=== PATIENT | male | born 1965 | race Caucasian/White ===

== ENCOUNTER 2018-10-08 09:13 | Day surgery (SDC) | payer MEDICAID ==
[~2018-10-08] VITALS: Ht 175.3 cm; Wt 81.6 kg
[~2018-10-08 09:13] MED LIST: LACTATED RINGERS 1,000 ML IV SCH; MICAR4 PO; PANT40TA4 PO; PROP40TA7 PO; [UNRECOGNIZED DRUG - OTHER] PO; [UNRECOGNIZED DRUG - OTHER] PO
[2018-10-08] MEDS ORDERED: SODIUM CHLORIDE 0.9% 1,000 ML IV SCH (10:15)
[2018-10-08] MEDS ORDERED: SIMETHICONE 40 MG/0.6 ML 30ML ONE (11:11)
[2018-10-08] MEDS ORDERED: MIDAZOLAM HCL 2 MG/2 ML VIAL ONE (11:27)
[2018-10-08] MEDS ORDERED: LIDOCAINE HCL 1% 20ML VIAL (Pyxis) INJ ONE (11:27)
[2018-10-08] MEDS ORDERED: FENTANYL CITRATE/PF 50MCG/ML 2ML VIAL ONE ×2 (11:27→11:55)
[2018-10-08] MEDS ORDERED: PROPOFOL 200MG/20ML VIAL IV ONE (11:27)
[2018-10-08] MEDS ORDERED: DIPHENHYDRAMINE 50MG/ML VIAL ONE (11:28)
[2018-10-08] MEDS ORDERED: [UNRECOGNIZED DRUG - CODE] PO (12:11)
[2018-10-08] MEDS ORDERED: PROP40TA7 PO (12:16)
== END 2018-10-08 13:55 | disposition home or self-care (01) ==
LOC: OR 09:13
PROVIDERS: ATTEND Internal Medicine Gastroenterology
DX: K29.50 Unspecified chronic gastritis without bleeding (principal); I85.10 Secondary esophageal varices without bleeding; K74.69 Other cirrhosis of liver; K76.6 Portal hypertension; K44.9 Diaphragmatic hernia without obstruction or gangrene; K31.9 Disease of stomach and duodenum, unspecified; K31.89 Other diseases of stomach and duodenum; K29.70 Gastritis, unspecified, without bleeding; K31.7 Polyp of stomach and duodenum; I10 Essential (primary) hypertension; F10.10 Alcohol abuse, uncomplicated; K21.9 Gastro-esophageal reflux disease without esophagitis; Z79.899 Other long term (current) drug therapy
CPT/HCPCS: 43244; 43251; 88305; 88312; 88313; 93005; J1200; J2250; J2704; J3010; J3490

== ENCOUNTER 2018-12-17 08:40 | Day surgery (SDC) | payer MEDICAID ==
[~2018-12-17] VITALS: Ht 175.3 cm; Wt 82.6 kg
[~2018-12-17 08:40] MED LIST changes: -LACTATED RINGERS 1,000 ML IV SCH; +[UNRECOGNIZED DRUG - CODE] PO; -[UNRECOGNIZED DRUG - OTHER] PO
[2018-12-17] MEDS ORDERED: LACTATED RINGERS 1,000 ML IV SCH (09:30)
[2018-12-17] MEDS ORDERED: LIDOCAINE HCL/PF 1% 10 MG/ML 5ML VIAL ONE (11:35)
[2018-12-17] MEDS ORDERED: PROPOFOL 200MG/20ML VIAL IV ONE (11:35)
[2018-12-17] MEDS ORDERED: RANI150T7 PO (12:17)
[2018-12-17] MEDS ORDERED: SUCR1TAB PO (12:17)
== END 2018-12-17 13:20 | disposition home or self-care (01) ==
LOC: OR 08:40
PROVIDERS: ATTEND Internal Medicine Gastroenterology
DX: K29.70 Gastritis, unspecified, without bleeding (principal); I85.00 Esophageal varices without bleeding; K74.60 Unspecified cirrhosis of liver; K44.9 Diaphragmatic hernia without obstruction or gangrene; K31.9 Disease of stomach and duodenum, unspecified; K21.9 Gastro-esophageal reflux disease without esophagitis; M19.90 Unspecified osteoarthritis, unspecified site; I10 Essential (primary) hypertension; Z96.642 Presence of left artificial hip joint; Z98.890 Other specified postprocedural states; Z79.899 Other long term (current) drug therapy; F10.10 Alcohol abuse, uncomplicated
CPT/HCPCS: 43235; J2704; J3490

== ENCOUNTER 2019-03-12 10:23 | Emergency (ER) | payer MEDICAID ==
[~2019-03-12] VITALS: Ht 175.3 cm; Wt 85.0 kg
[~2019-03-12 10:23] MED LIST changes: -MICAR4 PO; -PANT40TA4 PO; -PROP40TA7 PO; +RANI150T7 PO; -[UNRECOGNIZED DRUG - CODE] PO
[2019-03-12] MEDS ORDERED: SODIUM CHLORIDE 0.9% 1,000 ML IV ONE (11:21)
[2019-03-12 11:49] LABS: EOSINOPHILS % 2.4 % (0.0-5.0); HEMATOCRIT. 42.4 % (42.0-52.0); LYMPHOCYTES % 37.9 % (20.0-50.0); MEAN CORPUSCULAR HEMOGLOBIN 28.8 pg (28.0-32.0); MEAN CORPUSCULAR VOLUME 87.4 fL (80.0-94.0); MEAN PLATELET VOLUME 9.4 fl (7.4-10.4); MONOCYTES % 10.9 % (2.0-8.0); NEUTROPHILS % 47.8 % (40.0-76.0); PLATELET 204 x1000/uL (130-400); RED BLOOD CELL COUNT 4.85 mill/uL (4.7-6.1); RED CELL DISTRIBUTION WIDTH 13.7 % (11.6-14.6)
[2019-03-12 11:54] LABS: CHLORIDE 107 mEq/L (98-107)
[2019-03-12 14:08] LABS: CLARITY URINE CLEAR (CLEAR); COLOR URINE YELLOW (YELLOW); KETONES URINE NEGATIVE (NEGATIVE); LEUKOCYTE ESTERASE URINE NEGATIVE (NEGATIVE); NITRITE URINE NEGATIVE (NEGATIVE); OCCULT BLOOD URINE NEGATIVE (NEGATIVE); PH URINE 6.5 (4.5-8.0); PROTEIN URINE NEGATIVE (NEGATIVE); SPECIFIC GRAVITY URINE 1.009 (1.005-1.030); UROBILINOGEN URINE 0.2 E.U./dL (0.2-1.0)
[2019-03-12 17:00] VITALS: BP 125/79
== END 2019-03-12 17:06 | disposition home or self-care (01) ==
LOC: ER 10:23
DX: R42 Dizziness and giddiness (principal); K74.60 Unspecified cirrhosis of liver
CPT/HCPCS: 36415; 71045; 80053; 81003; 83690; 83735; 84484; 85025; 93005; 99284; J7030

== ENCOUNTER 2019-07-01 10:31 | Emergency (ER) | payer MEDICAID ==
[~2019-07-01] VITALS: Ht 175.3 cm; Wt 89.0 kg
[2019-07-01 11:50] LABS: CLARITY URINE CLEAR (CLEAR); COLOR URINE YELLOW (YELLOW); KETONES URINE NEGATIVE (NEGATIVE); LEUKOCYTE ESTERASE URINE NEGATIVE (NEGATIVE); NITRITE URINE NEGATIVE (NEGATIVE); OCCULT BLOOD URINE NEGATIVE (NEGATIVE); PH URINE 7.5 (4.5-8.0); PROTEIN URINE NEGATIVE (NEGATIVE); SPECIFIC GRAVITY URINE 1.004 (1.005-1.030); UROBILINOGEN URINE 0.2 E.U./dL (0.2-1.0)
[2019-07-01 12:24] LABS: *AMPHETAMINES SCREEN URINE NEGATIVE (NEGATIVE); *BARBITURATES SCREEN URINE NEGATIVE (NEGATIVE); CANNABINOID URINE SCREEN NEGATIVE (NEGATIVE); OPIATES URINE SCREEN NEGATIVE (NEGATIVE); PHENCYCLIDINE URINE SCREEN NEGATIVE (NEGATIVE)
[2019-07-01 12:26] LABS: *BENZODIAZEPINES SCREEN URINE NEGATIVE (NEGATIVE); *COCAINE SCREEN URINE NEGATIVE (NEGATIVE)
[2019-07-01 12:34] LABS: METHADONE URINE SCREEN NEGATIVE (NEGATIVE)
[2019-07-01 13:15] LABS: BASOPHILS % 0.9 % (0.0-2.0); EOSINOPHILS % 2.7 % (0.0-5.0); HEMATOCRIT. 49.1 % (42.0-52.0); HEMOGLOBIN. 16.4 g/dL (14.0-18.0); MEAN CORPUSCULAR HEMOGLOBIN 28.9 pg (28.0-32.0); MEAN CORPUSCULAR VOLUME 86.6 fL (80.0-94.0); MEAN PLATELET VOLUME 9.4 fl (7.4-10.4); MONOCYTES % 6.3 % (2.0-8.0); NEUTROPHILS % 53.1 % (40.0-76.0); PLATELET 232 x1000/uL (130-400); RED BLOOD CELL COUNT 5.67 mill/uL (4.7-6.1); RED CELL DISTRIBUTION WIDTH 13.7 % (11.6-14.6)
[2019-07-01 13:22] LABS: CHLORIDE 107 mEq/L (98-107); PROTHROMBIN TIME 10.1 sec (9.6-11.0)
[2019-07-01 13:26] LABS: ETHANOL BLOOD < 10 mg/dL
[2019-07-01] MEDS ORDERED: TRAMADOL 50MG TABLET PO ONE (13:30)
[2019-07-01 14:18] VITALS: BP 134/80
== END 2019-07-01 14:25 | disposition home or self-care (01) ==
LOC: ER 10:31
DX: R51 Headache (principal); R42 Dizziness and giddiness; K21.9 Gastro-esophageal reflux disease without esophagitis; K76.9 Liver disease, unspecified; R06.00 Dyspnea, unspecified
CPT/HCPCS: 36415; 70450; 71045; 80053; 80305; 80320; 81003; 82140; 83690; 83880; 84484; 85025; 85610; 93005; 99284; Z7610; G0480

== ENCOUNTER 2020-04-13 09:57 | Emergency (ER) | payer MEDICAID ==
[~2020-04-13] VITALS: Ht 170.2 cm; Wt 82.0 kg
[2020-04-13] MEDS ORDERED: IBUPROFEN 600MG TABLET PO ONE (10:45)
[2020-04-13] MEDS ORDERED: LIDOCAINE HCL 1% 20ML VIAL (Pyxis) INJ INFIL ONE (10:45)
[2020-04-13] MEDS ORDERED: ACETAMINOPHEN 500MG TABLET PO ONE (10:45)
[2020-04-13] MEDS ORDERED: TETANUS, DIPHTHERIA, PERTUSSIS VAC/PF 0.5ML (>7YR OLD) IM ONE (10:45)
[2020-04-13 12:04] VITALS: BP 155/93
== END 2020-04-13 12:07 | disposition home or self-care (01) ==
LOC: ER 09:57
DX: S62.631A Displaced fracture of distal phalanx of left index finger, initial encounter for closed fracture (principal); K21.9 Gastro-esophageal reflux disease without esophagitis; Z98.890 Other specified postprocedural states; S62.638A Displaced fracture of distal phalanx of other finger, initial encounter for closed fracture; X58.XXXA Exposure to other specified factors, initial encounter; Y93.89 Activity, other specified; Y92.89 Other specified places as the place of occurrence of the external cause; Y99.8 Other external cause status
CPT/HCPCS: 12001; 73140; 90471; 90715; 99283; J3490

== ENCOUNTER 2020-04-15 08:49 | Emergency (ER) | payer MEDICAID ==
[~2020-04-15] VITALS: Ht 170.2 cm; Wt 82.0 kg
[2020-04-15 08:52] VITALS: BP 136/85
== END 2020-04-15 09:35 | disposition home or self-care (01) ==
LOC: ER 08:49
DX: Z48.00 Encounter for change or removal of nonsurgical wound dressing (principal); K74.60 Unspecified cirrhosis of liver; S62.608D Fracture of unspecified phalanx of other finger, subsequent encounter for fracture with routine healing; X58.XXXD Exposure to other specified factors, subsequent encounter; Z96.649 Presence of unspecified artificial hip joint
CPT/HCPCS: 99281

== ENCOUNTER 2022-06-23 10:24 | Emergency (ER) | payer MEDICAID ==
[~2022-06-23] VITALS: Ht 172.7 cm; Wt 67.0 kg
[2022-06-23 10:49] VITALS: BP 120/91
[2022-06-23] MEDS ORDERED: FAMOTIDINE 20MG/2ML VIAL IV STA (11:09)
[2022-06-23] MEDS ORDERED: LOPERAMIDE HCL 2MG CAPSULE PO ONE (11:15)
[2022-06-23] MEDS ORDERED: SODIUM CHLORIDE 0.9% 1,000 ML IV ONE (11:15)
[2022-06-23 11:56] LABS: BASOPHILS % 0.5 % (0.0-2.0); EOSINOPHILS % 1.5 % (0.0-5.0); HEMATOCRIT. 46.5 % (42.0-52.0); HEMOGLOBIN. 15.4 g/dL (14.0-18.0); LYMPHOCYTES % 28.4 % (20.0-50.0); MEAN CORPUSCULAR HEMOGLOBIN 28.6 pg (28.0-32.0); MEAN CORPUSCULAR VOLUME 86.2 fL (80.0-94.0); MEAN PLATELET VOLUME 8.7 fl (7.4-10.4); MONOCYTES % 8.2 % (2.0-8.0); NEUTROPHILS % 61.4 % (40.0-76.0); PLATELET 288 x1000/uL (130-400); RED CELL DISTRIBUTION WIDTH 14.2 % (11.6-14.6)
[2022-06-23 12:01] LABS: CHLORIDE 107 mEq/L (98-107)
[2022-06-23 12:04] LABS: PROTHROMBIN TIME 10.3 sec (9.6-11.0)
[2022-06-23 12:10] LABS: ETHANOL BLOOD < 10 mg/dL
[2022-06-23 12:27] LABS: CLARITY URINE CLEAR (CLEAR); COLOR URINE YELLOW (YELLOW); KETONES URINE TRACE (NEGATIVE); LEUKOCYTE ESTERASE URINE NEGATIVE (NEGATIVE); NITRITE URINE NEGATIVE (NEGATIVE); OCCULT BLOOD URINE TRACE (NEGATIVE); PROTEIN URINE NEGATIVE (NEGATIVE); SPECIFIC GRAVITY URINE 1.021 (1.005-1.030); UROBILINOGEN URINE 0.2 E.U./dL (0.2-1.0)
[2022-06-23] MEDS ORDERED: AZIT500T8 MT (12:42)
[2022-06-23] MEDS ORDERED: LOPE2CAP MT (12:42)
[2022-06-23 12:51] LABS: *AMPHETAMINES SCREEN URINE NEGATIVE (NEGATIVE); *BARBITURATES SCREEN URINE NEGATIVE (NEGATIVE); *BENZODIAZEPINES SCREEN URINE NEGATIVE (NEGATIVE); *COCAINE SCREEN URINE NEGATIVE (NEGATIVE); CANNABINOID URINE SCREEN NEGATIVE (NEGATIVE); METHADONE URINE SCREEN NEGATIVE (NEGATIVE); OPIATES URINE SCREEN NEGATIVE (NEGATIVE); PHENCYCLIDINE URINE SCREEN NEGATIVE (NEGATIVE)
== END 2022-06-23 13:54 | disposition home or self-care (01) ==
LOC: ER 10:24
DX: K76.89 Other specified diseases of liver (principal); I10 Essential (primary) hypertension; Z98.890 Other specified postprocedural states
CPT/HCPCS: 36415; 74176; 80053; 80305; 80320; 81003; 83690; 84484; 85025; 85610; 96361; 96374; 99285; J3490; J7030; G0480

== ENCOUNTER 2022-09-30 09:13 | Emergency (ER) | payer MEDICAID, OTHER ==
[~2022-09-30] VITALS: Ht 170.2 cm; Wt 80.0 kg
[~2022-09-30 09:13] MED LIST changes: +AZIT500T8 MT; +LOPE2CAP MT
[2022-09-30] MEDS ORDERED: KETOROLAC 30MG/ML VIAL IM ONE (13:30)
[2022-09-30] MEDS ORDERED: IBUP-2029 MT (13:35)
[2022-09-30 13:58] VITALS: BP 135/87
== END 2022-09-30 14:00 | disposition home or self-care (01) ==
LOC: ER 09:13
DX: G57.11 Meralgia paresthetica, right lower limb (principal)
CPT/HCPCS: 73502; 96372; 99283; J1885; Z7610

== ENCOUNTER 2023-09-03 10:26 | Emergency (ER) | payer MEDICAID ==
[~2023-09-03] VITALS: Ht 170.2 cm; Wt 81.6 kg
[~2023-09-03 10:26] MED LIST changes: +IBUP-2029 MT
[2023-09-03 10:37] VITALS: TEMP 98.4; O2SAT 96
[2023-09-03 11:17] LABS: BASOPHILS % 0.5 % (0.0-2.0); EOSINOPHILS % 2.2 % (0.0-5.0); HEMATOCRIT. 46.2 % (42.0-52.0); HEMOGLOBIN. 15.8 g/dL (14.0-18.0); LYMPHOCYTES % 31.6 % (20.0-50.0); MEAN CORPUSCULAR HGB CONC 34.2 g/dL (31.0-37.0); MEAN CORPUSCULAR VOLUME 87.9 fL (80.0-94.0); MEAN PLATELET VOLUME 8.7 fl (7.4-10.4); MONOCYTES % 7.9 % (2.0-8.0); NEUTROPHILS % 57.8 % (40.0-76.0); PLATELET 257 x1000/uL (130-400); RED BLOOD CELL COUNT 5.26 mill/uL (4.7-6.1); RED CELL DISTRIBUTION WIDTH 13.5 % (11.6-14.6); WHITE BLOOD COUNT 6.7 x1000/uL (4.5-11.0)
[2023-09-03 11:55] LABS: ALANINE AMINOTRANSFERASE 21 IU/L (10-49); ALBUMIN 4.6 g/dL (3.2-4.8); ASPARTATE AMINOTRANSFERASE 18 IU/L (<34); BILIRUBIN TOTAL 0.5 mg/dL (0.1-1.0); CALCIUM 9.2 mg/dL (8.7-10.4); CARBON DIOXIDE 26 mEq/L (21-32); CHLORIDE 104 mEq/L (98-107); CREATININE 0.9 mg/dL (0.6-1.3); GLUCOSE 105 mg/dL (70-105); POTASSIUM 3.9 mEq/L (3.5-5.1); PROTEIN TOTAL 7.4 g/dL (6.0-8.3); SODIUM 137 mEq/L (136-145); TROPONIN I HIGH SENSITIVITY 4 ng/L (3.0-53); UREA NITROGEN BLOOD 17 mg/dL (9-23)
[2023-09-03] MEDS ORDERED: ASPIRIN 325MG EC TABLET PO ONE (12:30)
[2023-09-03 13:37] LABS: TROPONIN I HIGH SENSITIVITY 4 ng/L (3.0-53)
[2023-09-03] MEDS: ASPIRIN 325MG EC TABLET PO NR (16:44)
[2023-09-03 18:46] VITALS: BP 151/91; PULSE 57; RESP 18
== END 2023-09-03 16:51 | disposition home or self-care (01) ==
LOC: ER 11:52
DX: R07.89 Other chest pain (principal); I10 Essential (primary) hypertension; Z98.890 Other specified postprocedural states; Z79.899 Other long term (current) drug therapy
CPT/HCPCS: 36415; 71045; 80053; 84484; 85025; 93005; 99285

== ENCOUNTER 2024-08-03 08:04 | Emergency (ER) | payer OTHER ==
[~2024-08-03] VITALS: Ht 172.7 cm; Wt 75.0 kg
[2024-08-03 08:13] VITALS: BP 116/79; PULSE 69; RESP 18; TEMP 36.7; O2SAT 98
[2024-08-03 09:09] LABS: BASOPHILS % 1.3 % (0.0-2.0); EOSINOPHILS % 4.6 % (0.0-5.0); HEMATOCRIT. 42.7 % (42.0-52.0); HEMOGLOBIN. 14.4 g/dL (14.0-18.0); LYMPHOCYTES % 43.3 % (20.0-50.0); MEAN CORPUSCULAR HGB CONC 33.8 g/dL (31.0-37.0); MEAN CORPUSCULAR VOLUME 88.8 fL (80.0-94.0); MEAN PLATELET VOLUME 9.3 fl (7.4-10.4); MONOCYTES % 8.1 % (2.0-8.0); NEUTROPHILS % 42.7 % (40.0-76.0); PLATELET 227 x1000/uL (130-400); RED BLOOD CELL COUNT 4.81 mill/uL (4.7-6.1); RED CELL DISTRIBUTION WIDTH 14.2 % (11.6-14.6); WHITE BLOOD COUNT 4.4 x1000/uL (4.5-11.0)
[2024-08-03 09:22] LABS: PROTHROMBIN TIME 10.5 sec (9.6-11.0)
[2024-08-03 09:25] LABS: CHLORIDE 106 mEq/L (98-107); POTASSIUM 3.9 mEq/L (3.5-5.1); SODIUM 139 mEq/L (136-145)
[2024-08-03 09:26] LABS: CALCIUM 9.2 mg/dL (8.7-10.4); CARBON DIOXIDE 26 mEq/L (21-32)
[2024-08-03 09:31] LABS: CREATININE 0.8 mg/dL (0.6-1.3); GLUCOSE 121 mg/dL (70-105); UREA NITROGEN BLOOD 14 mg/dL (9-23)
[2024-08-03] MEDS: LIDOCAINE HCL/PF 1% 10 MG/ML 5ML VIAL INFIL ONE (11:27)
[2024-08-03] MEDS ORDERED: IOHEXOL-350 100 ML BOTTLE ONE (15:20)
== END 2024-08-03 12:14 | disposition home or self-care (01) ==
LOC: ER 08:04
DX: M25.461 Effusion, right knee (principal); Z96.649 Presence of unspecified artificial hip joint; Z79.899 Other long term (current) drug therapy; W26.0XXA Contact with knife, initial encounter; Y93.89 Activity, other specified; Y92.89 Other specified places as the place of occurrence of the external cause; Y99.8 Other external cause status
CPT/HCPCS: 80048; 85025; 85610; 36415; 73706; 20610; 99285; Q9967; J2003; Z7610